=== PATIENT | female | born 1955 | race Caucasian/White ===

== ENCOUNTER 2022-12-30 07:44 | Day surgery (SDC) | payer MEDICARE, SELFPAY ==
[2022-12-24 13:55] VITALS: BMI 23.1
--- NOTE | 2022-12-25 13:11 | MHC.SHP ---
Pre-Procedural Eval Section A Date of Service: 12/25/22 The patient is an INPATIENT: No Changes since office visit: No Cold of Flu in the past 2 weeks, No New Medical Problems, No Changes in Medication and No Patient answered all questions The History & Physical has been completed within 30 days and I have reviewed it.: Yes Section B Chief Complaint: Age-related nuclear cataract, right eye Allergies: Allergies Allergy/AdvReac Type Severity Reaction Status Date / Time oxycodone [From Percocet] Allergy Severe Angioedema Verified 12/24/22 13:50 Sulfa (Sulfonamide Allergy Severe Angioedema Verified 12/24/22 13:50 Antibiotics) sulfamethoxazole Allergy Severe Angioedema Verified 12/24/22 13:50 [From Bactrim] trimethoprim [From Bactrim] Allergy Severe Angioedema Verified 12/24/22 13:50 meperidine [From Demerol] AdvReac Intermediate Nausea and Verified 12/24/22 13:50 Vomiting Plan Diagnosis/Plan: Unchanged I have reviewed the history and physical and performed a pertinent physical examination on my patient. No changes have occurred unless specified. Time Spent With Patient Time: Total time managing care of this patient today ____ minutes.
--- NOTE | 2022-12-30 07:25 | HO.ANESPROP2 ---
[facility] Past Medical History Medical History Cataract Compression fracture of body of thoracic vertebra GERD (gastroesophageal reflux disease) History of cervical dysplasia Hypercholesteremia DAV (obstructive sleep apnea) Osteopenia Retinal vein occlusion Urinary incontinence Surgical History Surgical History History of bunionectomy Hx of section Hx of kyphoplasty Hx of myringotomy Hx of shoulder surgery Hx of tonsillectomy History of Problems with Anesthesia: No Social History Social History Household Members: Other Household Members Other:: adult son Housing: Condominium Are you a primary care management assistant to a significant other at home: No Do you presently have visiting nurse or other home services: No Patient Tobacco Use Status: Never used Tobacco Use of substances other than those prescribed or required for medical reasons: No Have you been hit, kicked, punched, or otherwise hurt by someone within the past year? If so, by whom?: No Are you DNR?: No Advance Directives: No Advance Directives Information Provided: Yes Advance Directives on File: No Recently lost weight without trying: No Nutrition Risks: No Nutritional Risk Meds Allergies Allergy/AdvReac Type Severity Reaction Status Date / Time oxycodone [From Percocet] Allergy Severe Angioedema Verified 12/24/22 13:50 Sulfa (Sulfonamide Allergy Severe Angioedema Verified 12/24/22 13:50 Antibiotics) sulfamethoxazole Allergy Severe Angioedema Verified 12/24/22 13:50 [From Bactrim] trimethoprim [From Bactrim] Allergy Severe Angioedema Verified 12/24/22 13:50 meperidine [From Demerol] AdvReac Intermediate Nausea and Verified 12/24/22 13:50 Vomiting Active Medications: Current Medications Povidone Iodine (Povidone Iodine 5 % Ophth Soln 30 Ml Bottle) 1 appl EYE-RIGHT PREOP PRN PRN Reason: Pre-Op Surgical Implant Prophy Home Medications Medication Instructions Recorded Confirmed Last Taken Type duloxetine 20 mg capsule,delayed 20 mg PO DAILY 12/24/22 12/24/22 Unknown History release (Cymbalta) ergocalciferol (vitamin D2) 1,250 1,250 mcg PO QWEEK 12/24/22 12/24/22 Unknown History mcg (50,000 unit) capsule (Drisdol) multivitamin 1 tab PO DAILY 12/24/22 12/24/22 Unknown History omeprazole 20 mg capsule,delayed 20 mg PO DAILY 12/24/22 12/24/22 Unknown History release ondansetron HCl 4 mg tablet 4 mg PO Q8H PRN Nausea 12/24/22 12/24/22 Unknown History Exam Exam Date and Time: December 30, 2022724 Height,Weight and Vital Signs: Height 5 ft 4 in Weight 61.235 kg Airway Mallampati Class: III TM Dist: >3cm Neck ROM: Full Loose/Missing/Broken Teeth: No Heart: RRR Lungs: CTA Assessment and Plan Assessment Anesthesia Assessment: Anesthesia Plan Discussed and Chart Reviewed Final Anesthetic Review History of Problems with Anesthesia: No NPO: Yes ASA Class: III Final Preanesthetic Review: Meds/Allgs Chart Reviewed, Consent Obtained/Reviewed and Anes Risks/Benef Reviewed Patient Risk: Intermediate Procedure Risk: Low Anesthetic Plan Anesthetic Plan: MAC: Disposition: Standard PACU
[2022-12-30 08:21] VITALS: BP 132/70; PULSE 66; RESP 16; TEMP 36.3; O2SAT 96
[2022-12-30] MEDS: Tetracaine HCl/PF 0.5% Oph Sol 4 ML DROPS 1 DROP EYE-RIGHT (08:24)
[2022-12-30] MEDS: Cyclopentolate 1 % Ophth Sol 2 ML DRPBTL 1 DROP EYE-RIGHT ×3 (08:25→08:41)
[2022-12-30] MEDS: Tropicamide 1 % Ophth Sol 3 ML BTL 1 DROP EYE-RIGHT ×3 (08:27→08:43)
[2022-12-30] MEDS: Ketorolac Tromethamine 0.5% Op 5 ML DROPS 1 DROP EYE-RIGHT ×3 (08:29→08:45)
[2022-12-30] MEDS: Phenylephrine HCL 2.5% Oph SoL 2 ML BOTTLE 1 DROP EYE-RIGHT ×3 (08:31→08:47)
--- NOTE | 2022-12-30 09:58 | HO.PNOPHT ---
Ophthalmology Procedure Procedure Date of Service: 12/30/22 Ophthalmology Viscoelastic: Caitlin Reecet Dual Pack Pro Ophthalmology Lenses: TECHEMANTH [id number] (21) Procedure Notes: PREOPERATIVE DIAGNOSIS: Decreased visual acuity right eye secondary to cataract POSTOPERATIVE DIAGNOSIS: Same PROCEDURE: Right cataract extraction with intraocular lens insertion SURGEON: Florentino Mccullough M.D. ANESTHESIA: Topical/MAC ESTIMATED BLOOD LOSS: None COMPLICATIONS: None After obtaining informed consent, the patient was brought to the operating room suite and placed in the supine position. After adequate sedation per anesthesia, topical drops of Tetracaine were given to the right eye. The eye was then prepped and draped in the usual sterile fashion. The operating room microscope was then positioned over the operative eye and a lid speculum placed. A paracentesis was created. Viscoelastic was then instilled into the anterior chamber. A three plane incision was then created temporally, utilizing a 2.85 mm keratome. Capsulotomy forceps were then utilized to create a circular tear capsulotomy. Hydrodissection and hydrodelineation were carried out until adequate mobilization of the nucleus occurred. Phacoemulsification was then utilized to remove the dense central nucleus followed by removal of the cortical material utilizing the automated aspiration irrigation unit. Viscoelastic was instilled into the posterior capsular bag followed by placement of a posterior chamber intraocular lens without difficulty. The residual Viscoelastic was then removed utilizing the automated IA machine. The wound was checked and found to be watertight. The patient tolerated the procedure well and the lid speculum was removed. Intracameral injection of Vigamox 0.1 mL followed by a subtenon injection of Kenalog-40 0.2 mL were administered. The patient will be seen in the a.m.
[2022-12-30 10:18] VITALS: BP 136/73; PULSE 69; RESP 16; TEMP 36.7; O2SAT 95
--- NOTE | 2022-12-30 11:43 | PC.NURSE ---
Patient arrived to short stay surgery for surgical prep. Bilateral hearing aides present in patients ears. Patient stated to this RN The right one stopped working today! [gesturing to right side hearing aid] I changed the battery and everything, the speaker must be blown. That will be on my to do list to fix tomorrow. These hearing aides are very expensive too! . Both hearing removed upon transfer to the OR, and placed in blue labeled patient cup.
== END 2022-12-30 10:33 | disposition home or self-care (01) ==
PROVIDERS: PCP Internal Medicine; Visit Provider Ophthalmology
PROC: (CPT 66985; principal; 2022-12-30 08:30)
DX: H25.11 Age-related nuclear cataract, right eye (principal); H52.4 Presbyopia; H35.363 Drusen (degenerative) of macula, bilateral; G47.33 Obstructive sleep apnea (adult) (pediatric); Z79.899 Other long term (current) drug therapy; Z88.2 Allergy status to sulfonamides; Z88.8 Allergy status to other drugs, medicaments and biological substances
CPT/HCPCS: 66984; J2250; J3010; J3301; V2632

== ENCOUNTER 2023-01-13 07:05 | Day surgery (SDC) | payer MEDICARE, SELFPAY ==
[2022-12-24 13:58] VITALS: BMI 23.1
--- NOTE | 2023-01-09 09:02 | MHC.SHP ---
Pre-Procedural Eval Section A Date of Service: 01/09/23 The patient is an INPATIENT: No Changes since office visit: No Cold of Flu in the past 2 weeks, No New Medical Problems, No Changes in Medication and No Patient answered all questions The History & Physical has been completed within 30 days and I have reviewed it.: Yes Section B Chief Complaint: Age-related nuclear cataract, left eye Allergies: Allergies Allergy/AdvReac Type Severity Reaction Status Date / Time oxycodone [From Percocet] Allergy Severe Angioedema Verified 12/30/22 08:38 Sulfa (Sulfonamide Allergy Severe Angioedema Verified 12/30/22 08:38 Antibiotics) sulfamethoxazole Allergy Severe Angioedema Verified 12/30/22 08:38 [From Bactrim] trimethoprim [From Bactrim] Allergy Severe Angioedema Verified 12/30/22 08:38 meperidine [From Demerol] AdvReac Intermediate Nausea and Verified 12/30/22 08:38 Vomiting Plan Diagnosis/Plan: Unchanged I have reviewed the history and physical and performed a pertinent physical examination on my patient. No changes have occurred unless specified. Time Spent With Patient Time: Total time managing care of this patient today ____ minutes.
--- NOTE | 2023-01-13 07:20 | P.CONAN_ITS ---
FORM[facility]LY [facility] Past Medical History Medical History Cataract Compression fracture of body of thoracic vertebra GERD (gastroesophageal reflux disease) History of cervical dysplasia Hypercholesteremia DAV (obstructive sleep apnea) Osteopenia Retinal vein occlusion Urinary incontinence Functional capacity: independent ambulation Patient : No Family History Family history of problems with anesthesia: No Surgical History Surgical History History of bunionectomy Hx of section Hx of kyphoplasty Hx of myringotomy Hx of shoulder surgery Hx of tonsillectomy History of Problems with Anesthesia: No Social History Social History Household Members: Other Household Members Other:: adult son Housing: Condominium Are you a primary anesthesiologist and critical care to a significant other at home: No Do you presently have visiting nurse or other home services: No Patient Tobacco Use Status: Never used Tobacco Have you been hit, kicked, punched, or otherwise hurt by someone within the past year? If so, by whom?: No Are you DNR?: No Advance Directives: No Advance Directives Information Provided: Yes Advance Directives on File: No Recently lost weight without trying: No Nutrition Risks: No Nutritional Risk Patient : No Meds Allergies Allergy/AdvReac Type Severity Reaction Status Date / Time oxycodone [From Percocet] Allergy Severe Angioedema Verified 12/30/22 08:38 Sulfa (Sulfonamide Allergy Severe Angioedema Verified 12/30/22 08:38 Antibiotics) sulfamethoxazole Allergy Severe Angioedema Verified 12/30/22 08:38 [From Bactrim] trimethoprim [From Bactrim] Allergy Severe Angioedema Verified 12/30/22 08:38 meperidine [From Demerol] AdvReac Intermediate Nausea and Verified 12/30/22 08:38 Vomiting Home Medications Medication Instructions Recorded Confirmed Last Taken Type duloxetine 20 mg capsule,delayed 20 mg PO DAILY 12/24/22 12/24/22 Unknown History release (Cymbalta) ergocalciferol (vitamin D2) 1,250 1,250 mcg PO QWEEK 12/24/22 12/24/22 Unknown History mcg (50,000 unit) capsule (Drisdol) multivitamin 1 tab PO DAILY 12/24/22 12/24/22 Unknown History omeprazole 20 mg capsule,delayed 20 mg PO DAILY 12/24/22 12/24/22 Unknown History release ondansetron HCl 4 mg tablet 4 mg PO Q8H PRN Nausea 12/24/22 12/24/22 Unknown History Exam Exam Date and Time: January 13, 2023 0720 Height,Weight and Vital Signs: Height 5 ft 4 in Weight 61.235 kg Airway Mallampati Class: II TM Dist: >3cm Neck ROM: Full Heart: RRR Lungs: CTA Assessment and Plan Final Anesthetic Review Family History of Problems with Anesthesia: No History of Problems with Anesthesia: No ASA Class: II Final Preanesthetic Review: No Changes in Pt Med Stat, Meds/Allgs Chart Reviewed and Consent Obtained/Reviewed Patient Risk: Low Procedure Risk: Low
[2023-01-13 07:51] VITALS: BP 143/78; PULSE 77; RESP 16; TEMP 36.5; O2SAT 95
[2023-01-13] MEDS: Tetracaine HCl/PF 0.5% Oph Sol 4 ML DROPS 1 DROP EYE-LEFT (07:54)
[2023-01-13] MEDS: Cyclopentolate 1 % Ophth Sol 2 ML DRPBTL 1 DROP EYE-LEFT ×3 (07:55→08:06)
[2023-01-13] MEDS: Lactated Ringers 500 ML 50 ML IV (07:55)
[2023-01-13] MEDS: Tropicamide 1 % Ophth Sol 3 ML BTL 1 DROP EYE-LEFT ×3 (07:56→08:07)
[2023-01-13] MEDS: Ketorolac Tromethamine 0.5% Op 5 ML DROPS 1 DROP EYE-LEFT ×3 (07:56→08:08)
[2023-01-13] MEDS: Phenylephrine HCL 2.5% Oph SoL 2 ML BOTTLE 1 DROP EYE-LEFT ×3 (07:57→08:09)
--- NOTE | 2023-01-13 08:47 | HO.PNOPHT ---
Ophthalmology Procedure Procedure Date of Service: 01/13/23 Ophthalmology Viscoelastic: Healannette Duet Dual Pack Pro Ophthalmology Lenses: TECNIS [id number] (20.5) Procedure Notes: PREOPERATIVE DIAGNOSIS: Decreased visual acuity left eye secondary to cataract POSTOPERATIVE DIAGNOSIS: Same PROCEDURE: Left cataract extraction with intraocular lens insertion SURGEON: Florentino Mccullough M.D. ANESTHESIA: Topical/MAC ESTIMATED BLOOD LOSS: None COMPLICATIONS: None After obtaining informed consent, the patient was brought to the operation room suite and placed in the supine position. After adequate sedation per anesthesia, topical drops of Tetracaine were given to the left eye. The eye was then prepped and draped in the usual sterile fashion. The operating room microscope was then positioned over the operative eye and a lid speculum placed. A paracentesis was created. Viscoelastic was then instilled into the anterior chamber. A three plane incision was then created temporally, utilizing a 2.85 mm keratome. Capsulotomy forceps were then utilized to create a circular tear capsulotomy. Hydrodissection and hydrodelineation were carried out until adequate mobilization of the nucleus occurred. Phacoemulsification was then utilized to remove the dense central nucleus followed by removal of the cortical material utilizing the automated aspiration irrigation unit. Viscoat elastic was instilled into the posterior capsular bag followed by placement of a posterior chamber intraocular lens without difficulty. The residual Viscoat elastic was then removed utilizing the automated IA machine. The wound was check and found to be watertight. The patient tolerated the procedure well and the lid speculum was removed. Intracameral injection of Vigamox 0.1 mL followed by a subtenon injection of Kenalog-40 0.2 mL were administered. The patient will be seen in the a.m.
[2023-01-13 09:12] VITALS: BP 155/79; PULSE 79; RESP 18; TEMP 36.4; O2SAT 98
--- NOTE | 2023-01-13 09:17 | HO.POSTANES ---
Post Anesthesia Evaluation Post Anesthesia Evaluation Vital Signs: Vital Signs Temp Pulse Resp BP Pulse Ox O2 Del Method 01/13/23 07:51 97.7 F 77 16 143/78 H 95 Room Air Anesthesia: Monitored Mental Status: Awake Pain Control: Satisfactory Nausea/Vomiting: None Hydration: Adequate Anesthesia-Related Issues: No Anes. Related Issues
== END 2023-01-13 09:30 | disposition home or self-care (01) ==
PROVIDERS: PCP Internal Medicine; Visit Provider Ophthalmology
PROC: (CPT 66985; principal; 2023-01-13 08:20)
DX: H25.12 Age-related nuclear cataract, left eye (principal); H52.4 Presbyopia; H18.413 Arcus senilis, bilateral; H35.363 Drusen (degenerative) of macula, bilateral; M85.80 Other specified disorders of bone density and structure, unspecified site; G47.33 Obstructive sleep apnea (adult) (pediatric); Z79.899 Other long term (current) drug therapy; Z88.2 Allergy status to sulfonamides; Z88.8 Allergy status to other drugs, medicaments and biological substances
CPT/HCPCS: 66984; J2250; J2405; J3301; V2632

== ENCOUNTER 2024-12-05 14:28 | Emergency (ER) | payer MEDICARE, SELFPAY ==
[2024-12-05 14:44] VITALS: BP 177/67; PULSE 80; RESP 18; TEMP 37.2; O2SAT 96; BMI 23.7
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
[2024-12-05 16:00] VITALS: BP 177/67; PULSE 80; RESP 18; TEMP 37.2; O2SAT 96
--- NOTE | 2024-12-05 16:38 | PC.NURSE ---
Pt reports posterior neck pain radiating to L shoulder today, not relieved with PO Dilaudid at 11:00 today; denies paresthesias; denies removing [place] collar or fall/injury today; neuros intact; resting quietly on stretcher; awaiting ED provider; SYSTEMS ANALYST at bedside
[2024-12-05] MEDS: HYDROmorphone HCl 2 MG TABLET 4 MG PO ×2 (16:55→20:50)
[2024-12-05] MEDS: Ondansetron ODT 4 MG TAB.RAPDIS TRANSLINGU (17:21)
[2024-12-05 18:27] LABS: Basophils Percent Auto 0.6 % (0-2); Eosinophils Percent Auto 0.3 % (0-4); Hematocrit 41.7 % (37.0-47.0); Hemoglobin 14.6 g/dl (12.0-16.0); Imm Gran Abs Auto 0.01 X10*3/uL (0.00-0.03); Imm Gran Pct Auto 0.3 % (0.0-0.4); Lymphocytes Absolute Auto 0.6 X10*3/uL (1.2-4.9); Lymphocytes Percent Auto 16.3 % (20-40); MANUAL DIFF FLAG SCAN; Mean Corpuscular Hemoglobin 34.8 pg (27.0-33.0); Mean Corpuscular Volume 99.5 fL (80.0-98.0); Mean Platelet Volume 8.7 fL (9.4-12.3); Monocytes Absolute Auto 0.7 X10*3/uL (0.1-1.2); Monocytes Percent Auto 20.1 % (2-11); Neutrophils Absolute Auto 2.2 x10*3/uL (2.0-8.3); Neutrophils Percent Auto 62.4 % (45-73); Platelet Count 141 X10*3/uL (160-400); Red Blood Count 4.19 X10*6/uL (4.20-5.50); Red Cell Distribution Width 12.4 % (11.0-16.0); White Blood Count 3.5 X10*3/uL (4.8-10.8)
[2024-12-05 18:40] LABS: Alanine Aminotransferase 94 U/L (0-31); Albumin Level 3.8 g/dL (3.5-5.0); Alkaline Phosphatase 119 U/L (39-117); Anion Gap 13 (12-20); Aspartate Amino Transferase 152 U/L (5-31); Bilirubin Total 0.7 mg/dL (0.0-1.0); Blood Urea Nitrogen 8 mg/dL (9-16); Calcium 9.1 mg/dL (8.4-10.2); Carbon Dioxide 25 mmol/L (22-29); Chloride 101 mmol/L (96-108); Creatinine Clr Calc Pharmacy 87.3; Estimated Glomerular Filt Rate > 60; Glucose Random 111 mg/dL (60-115); Magnesium 1.8 mg/dL (1.6-2.6); Potassium 4.4 mmol/L (3.3-5.1); Sodium 135 mmol/L (135-145); Total Protein 7.3 g/dL (6.5-8.0)
[2024-12-05 19:00] LABS: SCAN SMEAR FLAG 1; SLIDE REVIEW VERIFIED
[2024-12-05 19:15] LABS: Influenza A PCR NEGATIVE (Negative); Influenza B PCR NEGATIVE (Negative); Resp Syncy Virus RNA Qual PCR NEGATIVE (Negative); SARS COV2 PCR INHOUSE POSITIVE (Negative)
[2024-12-05 19:42] VITALS: BP 119/51; PULSE 76; RESP 14; TEMP 36.8; O2SAT 92
--- NOTE | 2024-12-05 21:01 | PC.NURSE ---
pt ambulated to bathroom without symptoms. c collar remains in place. medicated for pain. now lying in bed calmly. pt states needs are met. call overton in reach
[2024-12-05 21:02] VITALS: BP 136/61; PULSE 70
[2024-12-05 22:00] VITALS: BP 136/61; PULSE 67; RESP 17; TEMP 36.6; O2SAT 95
[2024-12-06] VITALS (7 sets, daily range): BP systolic 131–185; BP diastolic 54–84; PULSE 64–87; RESP 13–18; TEMP 36.2–37.5; O2SAT 93–97
--- NOTE | 2024-12-06 02:19 | PC.NURSE ---
pt rang call overton appropriately and steadily ambulated with standby assist to bathroom
[2024-12-06] MEDS: HYDROmorphone HCl 2 MG TABLET 4 MG PO ×4 (02:26→16:45)
--- NOTE | 2024-12-06 06:16 | PC.NURSE ---
Pt a&ox4, no signs of distress. Pt reports 8/10 neck pain, requesting meds Pt requested and given drink Plan of care ongoing.
--- NOTE | 2024-12-06 06:25 | PC.NURSE ---
Pt requested and assisted to restroom. Plan of care ongoing.
--- NOTE | 2024-12-06 06:31 | PC.NURSE ---
Pt medicated per [facility] Plan of care ongoing.
--- NOTE | 2024-12-06 10:43 | PC.NURSE ---
pt appears confused. she repeatedly asked for PRN dilaudid and was reminded several times that it is ordered for every four hours. At the four hour camille this nurse brought in her dilaudid and she reported that she is not in pain and did not want it.
--- NOTE | 2024-12-06 11:55 | MHC.CM.PN ---
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
--- NOTE | 2024-12-06 12:26 | PC.NURSE ---
Assumed care of this patient upon transfer to overflow unit. Patient immediately demanding discharge paperwork and pain medicine. Explained to patient lab work, UA, and vitals needed. No discharge paperwork ready yet, waiting for lab results. Patient verbalized understanding.
[2024-12-06 13:02] LABS: Acetaminophen LAB < 3 mcg/mL (<30)
[2024-12-06] MEDS: Docusate Sodium 100 MG CAPSULE 200 MG PO (16:46)
[2024-12-06 17:05] LABS: Appearance Urine Clear; Color Urine Dark Yellow; Glucose Urine UA Negative (Negative); Leukocyte Esterase Urine Small (1+) (Negative); Nitrite Urine Negative (Negative); PH 6.5 (5.0-9.0); Specific Gravity - Urine 1.025 (1.005-1.025); UMIC TRIGGER UACC YES; Urine Blood Negative (Negative); Urine Ketones Negative (Negative); Urine Protein Negative (Neg-Trace)
[2024-12-06 17:17] LABS: Bacteria Urine None Seen (None Seen); Hyaline Casts Urine 0-2 /LPF (0-2); RBC Urine 0-2 /HPF (0-2); Squamous Epithelial Cell Urine 0-2 /HPF (0-2); UACC Culture Trigger YES; WBC Urine 0-5 /HPF (0-5)
--- NOTE | 2024-12-06 18:52 | PC.NURSE ---
Pt's sister has called multiple times this afternoon, demanding patient to be kept overnight because she lives by herself and is not safe to be at home alone. Informed sister there were no definitive plans for patient to be discharged this evening, however from notes read patient had declined visiting VNA services. Phone call transferred to case management. Subsequent phone calls fielded by sister were about patient's needs. Informed both patient and sister that patient can ask for things (to be changed, fresh clothes, etc.) at any time and staff will be able to assist her. Patient has had no difficulty utilizing call overton when asking for pain medicine throughout the day. Staff reeducated patient to use call be to ask for assistance at any time.
[2024-12-06] MEDS: Acetaminophen 325 MG TABLET 650 MG PO (21:10)
--- NOTE | 2024-12-06 21:21 | PC.NURSE ---
Went in to patient's room to assess patient for pain, patient stated he pain was moderate, about a 5 . Recommended trying tylenol instead of dilaudid, can get dilaudid later if patient's pain does no subside. Went to [facility] to get tylenol. Upon returning, jewels found walking to bathroom in just underwear, sweater, and aspen collar. Patient had urinated approximately 1/2 the length of the unit on the floor. When questioned whether or not she had urinated, patient stated, Oh. Yeah I did. Patient then proceeded to walk up to another patient and stare at them. Directed patient back to her own room. Patient given hospital socks and lilo pants. Patient insisted she was able to change by herself, and requested tylenol to be crushed because it goes down easier . Upon returning w/ crushed meds, patient's socks and dirty underwear found thrown across the room. All clothing gathered together and placed in belongings bag. Patient able to reposition herself back into bed without issue, able to eat crushed tylenol and applesauce without issue.
[2024-12-07] MEDS: HYDROmorphone HCl 2 MG TABLET 4 MG PO ×2 (00:18→09:17)
--- NOTE | 2024-12-07 00:24 | PC.NURSE ---
Pt c/o 04/26 pain, requesting medication. PRN dilaudid administered as ordered.
[2024-12-07] MEDS: Ondansetron ODT 4 MG TAB.RAPDIS TRANSLINGU (00:50)
[2024-12-07 06:31] VITALS: BP 137/63; PULSE 67; RESP 16; TEMP 37.2; O2SAT 98
[2024-12-07] MEDS: Acetaminophen 325 MG TABLET 650 MG PO (07:48)
[2024-12-07] MEDS: Multivitamin TABLET 1 TAB PO (07:48)
[2024-12-07] MEDS: Docusate Sodium 100 MG CAPSULE 200 MG PO (07:48)
--- NOTE | 2024-12-07 07:53 | PC.NURSE ---
Alert and responsive, neck brace in place. Patient ambulating on unit. Medicated for complaints of throat pain, denies neck pain at this time.
--- NOTE | 2024-12-07 08:26 | MHC.CM.ED ---
Patient remains in ER overflow. Physical therapy eval completed. Home with services is recommended. Received telephone call from patient's sister, Dulce. Dulce states patient was at [facility] from 11/28-12/05. Patient was d/c'd home and was supposed to start with [facility]. Patient returned to ER on 12/05. Dulce Physical therapy eval completed. Home with services is recommended. T/W explained insurance would not authorize STR if PT is not recommending it. Also explained patient had the option of privately paying for STR. Dulce is declining this at this time. [facility] made a referral to [facility]. Return referral made to [facility] in [facility]. Dulce will be here around 930am. Martina KUMAR and Deandra MILLER aware. Continue to monitor for d/c needs.
[2024-12-07 09:30] VITALS: BP 137/63; PULSE 67; RESP 16; TEMP 37.2; O2SAT 98
--- NOTE | 2024-12-07 09:51 | PC.NURSE ---
Patient given bed bath by PAUL
== END 2024-12-07 10:44 | disposition home or self-care (01) ==
PROVIDERS: Physician Assistant Medical; Emergency Provider Internal Medicine; PCP Internal Medicine
DX: S12.100A Unspecified displaced fracture of second cervical vertebra, initial encounter for closed fracture (principal); M54.2 Cervicalgia; R26.2 Difficulty in walking, not elsewhere classified; U07.1 COVID-19; X58.XXXA Exposure to other specified factors, initial encounter; Y93.9 Activity, unspecified; Y92.9 Unspecified place or not applicable; Y99.8 Other external cause status; Z79.899 Other long term (current) drug therapy; Z03.818 Encounter for observation for suspected exposure to other biological agents ruled out
CPT/HCPCS: 0241U; 36415; 80053; 80143; 81001; 83735; 85025; 87086; 97162; 99285